=== PATIENT | female | born 1970 | race African-American/Black ===

== ENCOUNTER 2017-04-04 10:12 | Emergency (ER) | payer BC ==
[~2017-04-04] VITALS: Ht 160 cm; Wt 65.0 kg
[~2017-04-04 10:12] MED LIST: AQUA CARE71 GM TP; ATHENOL325 MG PO; CELLCEPT500 MG PO; CLOBETASOL PROP60 GM TP; DEPO-PROVER150 MG/ML IM; FIORICET 50-301 EACH PO; FLEXERIL10 MG PO; FOLIC ACID1 MG PO; IBUPROFEN600 MG PO; INDOCIN25 MG PO; LEVAQUIN750 MG PO; MELOXICAM7.5 MG PO; METHOTREXATE2.5 MG PO; MOBIC7.5 MG PO; MOTRIN600 MG PO; NEURONTIN100 MG PO; NORCO 5/3251 TABLET PO; NORVASC5 MG PO; OMEPRAZOLE20 MG PO; PHENERGAN12.5 MG PR; PLAQUENIL200 MG PO; PREDNISONE20 MG PO; PROMETHAZINE HC25 M1 PO; PROTOPIC PO; RESTASIS 01 DROP/0.4 BOTH EYES; SUDAFED 12-HOU120 MG PO; TOPAMAX100 MG PO; TOPAMAX50 MG PO; VICODIN 5-3001 EACH PO; VITAMIN D22000 UNIT PO; VITAMIN D250000 UNIT PO; VITAMIN D50000 UNI4 PO; ZOFRAN ODT4 MG PO; ZOFRAN4 MG PO; [UNRECOGNIZED DRUG - OTHER] PO
[2017-04-04 10:45] LABS: HEMATOCRIT 38.5 % (36.0-46.0); MCH 29.8 PG (29.0-34.0); MCHC 32.2 G/DL (30.0-36.0); MCV 92.5 FL (83-99); RBC DIS.WIDTH-CV 12.4 % (11.8-14.6); RBC DIS.WIDTH-SD 42.3 % (39-53); RED BLOOD COUNT 4.16 M/uL (3.80-5.20); WHITE BLOOD COUNT 4.7 K/uL (4.1-10.2)
[2017-04-04 10:56] LABS: CHLORIDE 106 mEq/L (99-109); POTASSIUM 3.6 mEq/L (3.7-5.4); SODIUM 138 mEq/L (136-147)
[2017-04-04 10:57] LABS: GLUCOSE 81 mg/dL (70-99)
[2017-04-04 10:59] LABS: ANION GAP 8 MEQ/L (2-14)
[2017-04-04 11:01] LABS: GFR ESTIMATE (CALCULATED) > 59 mL/min/
[2017-04-04 11:02] LABS: UREA NITROGEN (BUN) 8 mg/dL (9-23)
[2017-04-04 11:07] LABS: TROP-I INTERPRETATION NEGATIVE; TROPONIN-I < 0.01 ng/mL (0.0-0.30)
[2017-04-04] MEDS ORDERED: TRIAMCINOLONE A15 G1 TP (11:08)
[2017-04-04 11:14] LABS: HEMATOLOGY COMMENT 1 SMEAR COMPATIBLE; MEAN PLAT.VOLUME 9.6 uM^3 (9.5-12.4); PLAT.SUFFICIENCY ADEQUATE; PLATELET COUNT 241 K/uL (156-360)
[2017-04-04 12:07] LABS: ADD MIUA? NO; BILIRUBIN NEGATIVE; BLOOD NEGATIVE; COLOR STRAW ((YELLOW)); GLUCOSE (STRIP) NEGATIVE; KETONES NEGATIVE; LEUKOCYTES NEGATIVE; NITRITE NEGATIVE; PROTEIN (STRIP) NEGATIVE; SPECIFIC GRAVITY 1.006 (1.000-1.030); UCUL ADDED? NO; UROBILINOGEN 0.2 MG/DL (0.2-1.0)
[2017-04-04] MEDS ORDERED: BENTYL20 MG PO (14:14)
[2017-04-04 14:38] LABS: TROP-I INTERPRETATION NEGATIVE; TROPONIN-I < 0.01 ng/mL (0.0-0.30)
[2017-04-04 14:54] VITALS: BP 128/91
== END 2017-04-04 15:14 | disposition home or self-care (01) ==
LOC: EME 10:12
PROVIDERS: Nurse Practitioner Family
DX: K80.20 Calculus of gallbladder without cholecystitis without obstruction (principal); R07.9 Chest pain, unspecified; M79.7 Fibromyalgia; M32.9 Systemic lupus erythematosus, unspecified; K21.9 Gastro-esophageal reflux disease without esophagitis; Z87.891 Personal history of nicotine dependence
CPT/HCPCS: 71020; 76705; 80048; 81003; 84484; 85027; 93005; 99281; 99284

== ENCOUNTER 2018-02-19 12:53 | Emergency (ER) | payer BC ==
[~2018-02-19] VITALS: Ht 160 cm; Wt 66.0 kg
[~2018-02-19 12:53] MED LIST changes: +BENTYL20 MG PO; +TRIAMCINOLONE A15 G1 TP
[2018-02-19 14:09] LABS: HEMATOCRIT 40.3 % (36.0-46.0); HEMOGLOBIN 13.3 G/DL (11.9-15.5); MCH 30.5 PG (29.0-34.0); MCV 92.4 FL (83-99); RBC DIS.WIDTH-CV 12.6 % (11.8-14.6); RBC DIS.WIDTH-SD 43.1 % (39-53); RED BLOOD COUNT 4.36 M/uL (3.80-5.20); WHITE BLOOD COUNT 4.6 K/uL (4.1-10.2)
[2018-02-19 14:46] LABS: PLAT.SUFFICIENCY ADEQUATE; PLATELET COUNT 295 K/uL (156-360)
[2018-02-19 15:51] LABS: CHLORIDE 108 mEq/L (99-109); POTASSIUM 3.9 mEq/L (3.7-5.4)
[2018-02-19 15:52] LABS: SODIUM 141 mEq/L (136-147)
[2018-02-19 15:53] LABS: GLUCOSE 74 mg/dL (70-99)
[2018-02-19 15:57] LABS: CREATININE 0.8 mg/dL (0.6-1.3); GFR ESTIMATE (CALCULATED) > 59 mL/min/
[2018-02-19 15:58] LABS: UREA NITROGEN (BUN) 8 mg/dL (9-23)
[2018-02-19 16:58] LABS: APPEARANCE CLEAR ((CLEAR)); BILIRUBIN NEGATIVE; BLOOD SMALL; COLOR YELLOW ((YELLOW)); GLUCOSE (STRIP) NEGATIVE; KETONES 20; LEUKOCYTES NEGATIVE; NITRITE NEGATIVE; PROTEIN (STRIP) NEGATIVE; SPECIFIC GRAVITY 1.012 (1.000-1.030); UROBILINOGEN 0.2 MG/DL (0.2-1.0)
[2018-02-19 17:16] LABS: RED BLOOD CELLS 0-5 /HPF (0-5); WHITE BLOOD CELLS 0-5 /HPF (0-5)
[2018-02-19 17:17] LABS: BACTERIA 3+ /HPF; EPITHELIAL CELLS RARE /HPF; MUCUS 3+ /LPF; UCUL ADDED? YES
[2018-02-19 17:30] VITALS: BP 143/86
== END 2018-02-19 17:30 | disposition home or self-care (01) ==
LOC: EME 12:53
PROVIDERS: Physician Assistant
DX: G43.909 Migraine, unspecified, not intractable, without status migrainosus (principal); M79.7 Fibromyalgia; M32.9 Systemic lupus erythematosus, unspecified; M35.00 Sjogren syndrome, unspecified; Z87.891 Personal history of nicotine dependence; Z88.0 Allergy status to penicillin; Z88.1 Allergy status to other antibiotic agents
CPT/HCPCS: 80048; 80048 91; 81003; 84702; 85027; 87086; 87502; 87651 90; 99281; 99285; J1200; J1885; J2765; J7030